=== PATIENT | female | born 1990 | race African-American/Black ===

== ENCOUNTER 2016-12-14 22:55 | Emergency (ER) | payer BC, MEDICAID ==
[~2016-12-14] VITALS: Ht 167.6 cm; Wt 83.9 kg
[2016-12-14 23:20] VITALS: BP 131/90
--- NOTE | 2016-12-14 23:20 | Emergency Room Report ---
History of Present Illness General Chief Complaint: Animal Bite Source: Patient Present Illness HPI Patient presents after having domesticated dog bite to the left side of her face. This happened a few hours ago. She cleaned with peroxide. She does not want stitches. She does have a headache in in her face. No medications were taken. Tetanus is up-to-date. One bite is into the mouth, but she can't push her tongue into it. Pain 7/10, sharp and aching, not radiating, but she has PARRISH. Her period is late and she thinks it is from stress. No somatic complaints. Allergies: Coded Allergies: No Known Allergies (Unverified , 12/14/16) Patient History Past Medical History: see triage record Social History: Reports: smoking Social History Narrative home Last Menstrual Period: nov 12 Now: No : 1 Nursing Documentation-[facility] Past Medical History: No Stated History Review of Systems All Other Systems: negative except mentioned in HPI Physical Exam Vital Signs Date Time Temp Pulse Resp B/P (MAP) Pulse Ox O2 Delivery O2 Flow Rate FiO2 12/14/16 22:57 98.4 84 18 131/90 98 Room Air General Appearance: well appearing, no apparent distress Head: normocephalic Eyes: bilateral eye normal inspection, bilateral eye PERRL ENT: hearing grossly normal, normal pharynx, normal voice, moist mucus membranes, other - bite L above lip - < 1 cm other abrasion Neck: full range of motion, supple Respiratory: no respiratory distress, speaking full sentences Cardiovascular #1: regular rate, rhythm Cardiovascular #2: 2+ radial (R) Gastrointestinal: normal inspection Musculoskeletal: digits/nails normal, gait/station normal, normal range of motion Neurologic: alert, oriented x3, normal gait, grossly normal Psychiatric: mood/affect normal Skin: other - bites L face by mouth Medical Decision Making Diagnostic Impression: Primary Impression: Dog bite of face Qualified Codes: S01.85XA - Open bite of other part of head, initial encounter ; W54.0XXA - Bitten by dog, initial encounter ER Course Patient with dog bite to face. Suturable lesion L side of mouth, but she declines sutures. Needs cleaning and antibiotics. Will treat pain. Discussed treatment with patient. Improved with treatment. Patient stable for outpatient observation and treatment. Last Vital Signs Date Time Temp Pulse Resp B/P (MAP) Pulse Ox O2 Delivery O2 Flow Rate FiO2 10/6/17 00:53 98.4 78 16 124/88 99 Room Air Status: improved Disposition: HOME, SELF-CARE Condition: Improved Scripts Tramadol Hcl* (ULTRAM*) 50 Mg Tablet 50 MG ORAL Q6H Y for For Pain, #10 TAB 0 Refills Prov: Kimani Huerta M.D. 12/14/16 Ibuprofen* (MOTRIN*) 600 Mg Tablet 600 MG ORAL Q6H Y for For Pain, #20 TAB Prov: Kimani Huerta M.D. 12/14/16 Amoxicillin/Potassium Clav 500-125 Tablet* (AUGMENTIN 500-125 TABLET*) 1 Each Tablet 1 TAB ORAL THREE TIMES A DAY, #21 TAB Prov: Kimani Huerta M.D. 12/14/16 Bacitracin (Bacitracin) 28.4 Gm Oint...g. 1 APPLIC TOPIC BID, #10 GM Prov: Kimani Huerta M.D. 12/14/16 Kimani Huerta M.D. Dec 14, 2016 23:20
[2016-12-14] MEDS ORDERED: Bacitracin Oint UD TOPIC ONE (23:30)
[2016-12-14] MEDS ORDERED: TRAMADOL HCL50 MG ORAL (23:51)
[2016-12-14] MEDS ORDERED: AUGMENTIN 500-1 EACH ORAL (23:51)
[2016-12-14] MEDS ORDERED: BACITRACIN15 GM TOPIC (23:51)
[2016-12-14] MEDS ORDERED: IBUPROFEN600 MG ORAL (23:51)
[2016-12-15] MEDS ORDERED: Tetanus/Diptheria/Pertussis Vaccine 0.5ml Syr IM ONE (00:30)
[2016-12-15 00:40] VITALS: BP 124/88
[2016-12-15 00:53] VITALS: BP 124/88
== END 2016-12-15 00:53 | disposition home or self-care (01) ==
LOC: EMR 23:35
DX: S01.85XA Open bite of other part of head, initial encounter (principal); S00.511A Abrasion of lip, initial encounter; W54.0XXA Bitten by dog, initial encounter; Y92.89 Other specified places as the place of occurrence of the external cause; Z23 Encounter for immunization
CPT/HCPCS: 90471; 90715; 99284